=== PATIENT | male | born 1940 | race Two or more races ===

== ENCOUNTER 2020-08-02 09:47 | Inpatient (IN) | payer OTHER ==
[~2020-08-02] VITALS: Ht 104.1 cm; Wt 63.5 kg
[2020-08-02] MEDS ORDERED: ALTACE5 MG PO (10:01)
[2020-08-02] MEDS ORDERED: CARVEDILOL6.25 MG (10:01)
[2020-08-02] MEDS ORDERED: ALDACTONE25 MG PO (10:01)
[2020-08-02] MEDS ORDERED: PLAVIX75 MG PO (10:01)
[2020-08-02] MEDS ORDERED: LIPITOR40 M1 PO (10:01)
[2020-08-02] MEDS ORDERED: GLIPIZIDE XL5 MG PO (10:02)
[2020-08-02] MEDS ORDERED: LASIX20 MG PO (10:02)
[2020-08-02] MEDS ORDERED: PEPCID AC20 MG PO (10:02)
[2020-08-02] MEDS ORDERED: HUMULIN N100 UNIT/2 IJ (10:03)
== END 2020-08-17 13:23 | disposition home or self-care (01) | DRG 638 ==
LOC: ER 09:47 → MEDI 19:54 → SEC-K 19:54 → MEDI 08-04 13:18
PROVIDERS: ADMIT Internal Medicine; ATTEND Internal Medicine
PROC: B54DZZZ Ultrasonography of Bilateral Lower Extremity Veins (ICD-10-PCS; 2020-08-02)
PROC: B24BYZZ Ultrasonography of Heart with Aorta using Other Contrast (ICD-10-PCS; 2020-08-02)
PROC: BQ3GZZZ Magnetic Resonance Imaging (MRI) of Right Ankle (ICD-10-PCS; 2020-08-02)
PROC: 02HV33Z Insertion of Infusion Device into Superior Vena Cava, Percutaneous Approach (ICD-10-PCS; principal; 2020-08-04)
PROC: 3E04329 Introduction of Other Anti-infective into Central Vein, Percutaneous Approach (ICD-10-PCS; 2020-08-04)
PROC: 4A12X4Z Monitoring of Cardiac Electrical Activity, External Approach (ICD-10-PCS; 2020-08-12)
PROC: B030ZZZ Magnetic Resonance Imaging (MRI) of Brain (ICD-10-PCS; 2020-08-12)
DX: E11.622 Type 2 diabetes mellitus with other skin ulcer (principal); L97.315 Non-pressure chronic ulcer of right ankle with muscle involvement without evidence of necrosis; I13.0 Hypertensive heart and chronic kidney disease with heart failure and stage 1 through stage 4 chronic kidney disease, or unspecified chronic kidney disease; E11.65 Type 2 diabetes mellitus with hyperglycemia; E11.22 Type 2 diabetes mellitus with diabetic chronic kidney disease; N18.30 Chronic kidney disease, stage 3 unspecified; I50.9 Heart failure, unspecified; I25.10 Atherosclerotic heart disease of native coronary artery without angina pectoris; I73.9 Peripheral vascular disease, unspecified; E78.5 Hyperlipidemia, unspecified; Z79.4 Long term (current) use of insulin
CPT/HCPCS: 70551; 73221

== ENCOUNTER 2020-08-20 00:53 | Inpatient (IN) | payer OTHER ==
[~2020-08-20] VITALS: Ht 160 cm; Wt 59.0 kg
[~2020-08-20 00:53] MED LIST: ALDACTONE25 MG PO; ALTACE5 MG PO; CARVEDILOL6.25 MG; GLIPIZIDE XL5 MG PO; HUMULIN N100 UNIT/2 IJ; LASIX20 MG PO; LIPITOR40 M1 PO; PEPCID AC20 MG PO; PLAVIX75 MG PO
[2020-08-20] MEDS ORDERED: NORVASC2.5 M1 PO (01:06)
[2020-08-20] MEDS ORDERED: INTEGRA CAPSUL1 EACH PO (01:06)
== END 2020-08-29 09:35 | disposition home or self-care (01) | DRG 623 ==
LOC: ER 00:53 → MEDI 11:05
PROVIDERS: ADMIT Internal Medicine; ATTEND Internal Medicine
PROC: 4A12X4Z Monitoring of Cardiac Electrical Activity, External Approach (ICD-10-PCS; 2020-08-20)
PROC: BW24ZZZ Computerized Tomography (CT Scan) of Chest and Abdomen (ICD-10-PCS; 2020-08-20)
PROC: 8E0ZXY6 Isolation (ICD-10-PCS; 2020-08-21)
PROC: 0JBQ0ZZ Excision of Right Foot Subcutaneous Tissue and Fascia, Open Approach (ICD-10-PCS; principal; 2020-08-24)
DX: E11.622 Type 2 diabetes mellitus with other skin ulcer (principal); L97.313 Non-pressure chronic ulcer of right ankle with necrosis of muscle; I13.0 Hypertensive heart and chronic kidney disease with heart failure and stage 1 through stage 4 chronic kidney disease, or unspecified chronic kidney disease; J90 Pleural effusion, not elsewhere classified; E11.65 Type 2 diabetes mellitus with hyperglycemia; E11.22 Type 2 diabetes mellitus with diabetic chronic kidney disease; D64.9 Anemia, unspecified; I50.9 Heart failure, unspecified; I25.10 Atherosclerotic heart disease of native coronary artery without angina pectoris; I73.9 Peripheral vascular disease, unspecified; N18.4 Chronic kidney disease, stage 4 (severe); N40.0 Benign prostatic hyperplasia without lower urinary tract symptoms; Z79.4 Long term (current) use of insulin; Z20.822 Contact with and (suspected) exposure to COVID-19

== ENCOUNTER 2020-09-20 11:15 | Outpatient (CLI) | payer OTHER ==
[~2020-09-20 11:15] MED LIST changes: +INTEGRA CAPSUL1 EACH PO; +NORVASC2.5 M1 PO
== END 2020-09-20 11:20 | disposition home or self-care (01) ==
LOC: NUCLEAR 11:15
PROVIDERS: ATTEND General Practice
DX: I73.9 Peripheral vascular disease, unspecified (principal)

== ENCOUNTER 2020-09-20 14:30 | Emergency (ER) | payer OTHER ==
[~2020-09-20] VITALS: Ht 160 cm; Wt 63.5 kg
== END 2020-09-20 19:21 | disposition home or self-care (01) ==
LOC: ER 14:30
DX: S30.0XXA Contusion of lower back and pelvis, initial encounter (principal); S00.83XA Contusion of other part of head, initial encounter; W18.39XA Other fall on same level, initial encounter; Y93.89 Activity, other specified; Y92.488 Other paved roadways as the place of occurrence of the external cause; Y99.8 Other external cause status